=== PATIENT | female | born 1985 | race Two or more races ===

== ENCOUNTER 2024-05-15 06:55 | Day surgery (SDC) | payer MEDICAID, SELFPAY ==
[2024-05-13 07:41] VITALS: BMI 37.3
[2024-05-13 08:11] LABS: Basophils # (Auto) 0.1 Thou/mm3 (0.0-0.2); Basophils % (Auto) 1 % (0-2.5); Eosinophils # (Auto) 0.3 Thou/mm3 (0.0-0.5); Eosinophils % (Auto) 4 % (0-10); Hematocrit 30.6 % (36.0-46.0); Immature Granulocytes % (Auto) 0 % (0-0); Immature Granulocytes Auto 0.01 Thou/mm3 (0.00-0.00); Lymphocytes # (Auto) 3.2 Thou/mm3 (1.0-4.8); Lymphocytes % (Auto) 42 % (10-50); Mean Corpuscular HGB Conc 28.4 g/dl (31.0-37.0); Mean Corpuscular Hemoglobin 19.8 pg (25.0-35.0); Mean Corpuscular Volume 70 fL (80-100); Monocytes # (Auto) 0.5 Thou/mm3 (0.0-0.8); Monocytes % (Auto) 7 % (0-12); Neutrophils # (Auto) 3.5 Thou/mm3 (1.8-7.7); Neutrophils % (Auto) 46 % (37-80); Nucleated Red Blood Cell % 0 /100 WBC (0); Platelet Count 432 Thou/mm3 (140-440); RDW Standard Deviation 46.2 fL (36.4-46.3); Red Blood Count 4.39 Miln/mm3 (4.00-5.20); White Blood Count 7.7 Thou/mm3 (3.6-11.0)
[2024-05-13 08:13] LABS: Hemoglobin 8.7 g/dL (12.0-16.0)
[2024-05-13 08:24] LABS: HCG,Qualitative Serum Negative
[2024-05-13 08:29] LABS: Alanine Aminotransferase 17 U/L (10-49); Albumin, Serum 4.8 gm/dL (3.5-5.0); Albumin/Globulin Ratio 1.7 (1.2-2.2); Alkaline Phosphatase 49 U/L (46-116); Anion Gap 9 (7-16); Aspartate Amino Transferase 16 U/L (0-34); BUN/Creatinine Ratio 11 Ratio (12-20); Bilirubin,Total 0.3 mg/dL (0.3-1.2); Blood Urea Nitrogen 9 mg/dL (9-23); Calcium 9.5 mg/dL (8.3-10.6); Calcium (Corrected) 9.5 mg/dL (8.5-10.1); Carbon Dioxide 20.8 mMol/L (20.0-31.0); Chloride 108 mMol/L (98-107); Creatinine (Component) 0.8 mg/dL (0.6-1.3); Estimated Creatinine Clearance 102.9 mL/min (>60); Globulin 2.9 gm/dL (2.3-3.5); Glucose 89 mg/dL (74-106); Osmolality,Calculated 273 (275-295); Potassium 3.8 mMol/L (3.4-5.1); Sodium 138 mMol/L (136-145); Total Protein 7.7 gm/dL (5.7-8.2); eGFR > 60 See Note
[2024-05-15] VITALS (7 sets, daily range): BP systolic 95–114; BP diastolic 56–88; PULSE 67–104; RESP 18–20; TEMP 36.7–37.4; O2SAT 96–100; BMI 37.0
[2024-05-15] MEDS: RINGERS LACTATED 1000 ML 1,000 ML 20 ML IV (07:25)
--- NOTE | 2024-05-15 09:12 | PD.SUROPNT ---
Date of Procedure 05/15/24 Pre Op Diagnosis Symptomatic cholelithiasis Post Op Diagnosis Cholelithiasis with cholecystitis Procedure Laparoscopic cholecystectomy Findings Moderately distended gallbladder with large gallstone and chronic cholecystitis Procedure Description Patient was brought into the operating room in supine position. After administration of general endotracheal anesthesia abdomen was prepped and draped in standard surgical manner. A Veress needle was inserted through the umbilicus and pneumoperitoneum was obtained up to 15 mmHg. The Veress needle was then removed, a 5 mm infraumbilical incision was made and the 5mm trocar was inserted. Laparoscopic camera was placed. Under direct visualization a laparoscopic camera a 10 mm trocar was placed in subxiphoid and two 5 mm trocars placed in right upper quadrant. The gallbladder was identified and was noted to be moderately distended with a large gallstone and chronic cholecystitis. It was retracted cephalad and laterally. Dissection started near the infundibulum of gallbladder where cystic duct and gallbladder junction clearly identified. The cystic duct was circumferentially dissected off the peritoneum and surrounding inflammatory tissue. The critical view of safety was clearly demonstrated. Cystic duct was then divided between 2 endoclips proximally and one distally. The cystic artery was similarly dissected and divided. The gallbladder was then from the liver bed using electrocautery. The gallbladder was then placed inside an Endo Catch and removed from the abdomen utilizing subxiphoid trocar site. The area was copiously and thoroughly washed and irrigated, all the fluid was suctioned and the suction fluid returned clear. Hemostasis achieved using electrocautery. Endoclips noted be in place and intact without any bleeding or any leakage. Hemostasis was adequate and satisfactory. The subxiphoid trocar sites fascial defect was closed with 0 Vicryl using Endo Closure device. Instruments and trocars removed, pneumoperitoneum was evacuated and the incisions closed with 4-0 Monocryl in subcuticular fashion. Instrument needle and sponge counts were all reported to be correct X2. Patient tolerated the procedure well, was extubated, breathing spontaneously and without difficulty and was transferred to postanesthesia care in stable condition. Anesthesia GETA and local Pathology / specimen Other (Gallbladder and contents) Estimated Blood Loss 10 Condition Stable Disposition PACU Surgeon Mary Luis MD Surgical Staff Operation Date: 05/15/24 09:00 Case Staff Anesthesiologist: Miles Araiza RN First Assistant: Barbie Perez
[2024-05-15] MEDS: fentaNYL CIT INJ 50 mCg/ML AMP 2ML 25 MCG IV (09:33)
[2024-05-15] MEDS: ACETAMINOPHEN IVPB 1,000 MG/100 ML VIAL 250 MG IV (09:34)
== END 2024-05-15 10:10 | disposition home or self-care (01) ==
PROVIDERS: PCP Internal Medicine; Referring Provider Surgery; Visit Provider Surgery
PROC: 0FT44ZZ Resection of Gallbladder, Percutaneous Endoscopic Approach (ICD-10-PCS; CPT 47562; principal; 2024-05-15 08:45)
DX: K80.46 Calculus of bile duct with acute and chronic cholecystitis without obstruction (principal)
CPT/HCPCS: 47562; 36415; 80053; 84703; 85025; A4217; A4649; J0131; J0694; J1100; J1885; J2250; J2371; J2405; J2704; J3010; J3490; J7120

== ENCOUNTER 2024-07-07 14:59 | Emergency (ER) | payer MEDICAID, SELFPAY ==
[2024-07-07 15:58] VITALS: BP 130/82; PULSE 70; RESP 18; TEMP 36.7; O2SAT 100; BMI 37.3
--- NOTE | 2024-07-07 15:59 | XR_ITS ---
Examination: Pelvic ultrasound, transabdominal, complete Technique: Transabdominal ultrasound of the pelvis performed using grayscale imaging Date and time of exam: July 07, 2024 1802 hrs. Indications: Pelvic pain vaginal bleeding beginning 3 weeks ago Findings: Uterus 12.7 x 6.6 x 9.8 cm, multiple areas of fibroid degeneration, the largest in the fundus 4.7 cm Right ovary obscured by bowel gas Left ovary 3.8 cm arterial flow Impression: Multiple uterine masses, the largest in the fundus of uterus is vascular and may represent a malignant neoplasm of the uterus, measuring 4.7 x 4.2 x 4.3 cm Recommend MRI pelvis follow-up pre and postcontrast
--- NOTE | 2024-07-07 15:59 | PD.EDRME ---
Rapid Medical Screening Exam RME Arrival date/time: 07/07/24 14:59 39-year-old female with dysfunctional uterine bleeding presents emergency dept today requesting blood transfusion Chief Complaint: General Adult/Misc Complain Time Seen by Provider: 07/07/24 15:23 Vital signs: Vital Signs Temperature 98.0 F 07/07/24 15:58 Pulse Rate 70 07/07/24 15:58 Respiratory Rate 18 07/07/24 15:58 Blood Pressure 130/82 07/07/24 15:58 Pulse Oximetry (%) 100 07/07/24 15:58 Oxygen Delivery Method Room Air 07/07/24 15:58
[2024-07-07 16:26] LABS: Basophils # (Auto) 0.1 Thou/mm3 (0.0-0.2); Basophils % (Auto) 1 % (0-2.5); Eosinophils # (Auto) 0.3 Thou/mm3 (0.0-0.5); Eosinophils % (Auto) 5 % (0-10); Hematocrit 26.4 % (36.0-46.0); Immature Granulocytes % (Auto) 0 % (0-0); Immature Granulocytes Auto 0.01 Thou/mm3 (0.00-0.00); Lymphocytes # (Auto) 2.1 Thou/mm3 (1.0-4.8); Lymphocytes % (Auto) 32 % (10-50); Mean Corpuscular Hemoglobin 19.4 pg (25.0-35.0); Mean Corpuscular Volume 69 fL (80-100); Monocytes # (Auto) 0.4 Thou/mm3 (0.0-0.8); Monocytes % (Auto) 6 % (0-12); Neutrophils # (Auto) 3.8 Thou/mm3 (1.8-7.7); Neutrophils % (Auto) 57 % (37-80); Nucleated Red Blood Cell % 0 /100 WBC (0); Platelet Count 425 Thou/mm3 (140-440); RDW Standard Deviation 49.1 fL (36.4-46.3); Red Blood Count 3.81 Miln/mm3 (4.00-5.20); White Blood Count 6.7 Thou/mm3 (3.6-11.0)
[2024-07-07 16:41] LABS: Hemoglobin 7.4 g/dL (12.0-16.0)
[2024-07-07 16:44] LABS: Alanine Aminotransferase 38 U/L (10-49); Albumin, Serum 4.5 gm/dL (3.5-5.0); Albumin/Globulin Ratio 1.5 (1.2-2.2); Alkaline Phosphatase 57 U/L (46-116); Anion Gap 9 (7-16); Aspartate Amino Transferase 30 U/L (0-34); BUN/Creatinine Ratio 14 Ratio (12-20); Bilirubin,Total 0.2 mg/dL (0.3-1.2); Blood Urea Nitrogen 10 mg/dL (9-23); Calcium 9.4 mg/dL (8.3-10.6); Calcium (Corrected) 9.4 mg/dL (8.5-10.1); Carbon Dioxide 22.8 mMol/L (20.0-31.0); Chloride 109 mMol/L (98-107); Creatinine (Component) 0.7 mg/dL (0.6-1.3); Estimated Creatinine Clearance 117.6 mL/min (>60); Glucose 109 mg/dL (74-106); Osmolality,Calculated 281 (275-295); Potassium 4.1 mMol/L (3.4-5.1); Sodium 141 mMol/L (136-145); Total Protein 7.5 gm/dL (5.7-8.2); eGFR > 60 See Note
[2024-07-07 16:45] LABS: HCG,Qualitative Serum Negative
[2024-07-07 17:24] LABS: INR 0.9 (0.9-1.3); Partial Thromboplastin Time 22.8 Seconds (22.0-36.0); Prothrombin Time 10.2 Seconds (9.0-12.2)
[2024-07-07 17:51] LABS: Path Review Blood Smear Sent to Pathologist
[2024-07-07 18:51] LABS: Collection Type, Urine Clean Catch
[2024-07-07 19:32] LABS: Bacteria,Urine Rare; Bilirubin,Urine Negative (Negative); Blood,Urine 1+ (Negative); Clarity,Urine Clear (Clear/Hazy); Color,Urine Colorless (Lt Yel-Yel); Culture Indicated,Urine Not Indicated; Glucose, Urine Negative (Negative); Ketones,Urine Negative (Negative); Leukocyte Esterase,Urine Negative (Negative); Nitrite,Urine Negative (Negative); PH,Urine 6.5 (5.0-7.0); Protein,Urine Negative (Neg - Trace); RBC,Urine 2 /hpf (0-3); Specific Gravity,Urine 1.009 (1.001-1.035); Squamous Epithelial Cell,Urine 1 /hpf (0-5); Urobilinogen,Urine Negative mg/dL (0.0-1.0); WBC,Urine < 1 /hpf (0-5)
--- NOTE | 2024-07-07 19:36 | EDNOTE_ITS ---
<Statement entered by Daily Shelley MD - 07/08/24 01:45> As co-signing physician, I was present and available for consult prn. I concur with the plan and care as documented by the midlevel provider. ED General RME/HPI General Chief complaint: General Adult/Misc Complain Stated complaint: NEEDS BLOOD TRANSFUSION Time Seen by Provider: 07/07/24 15:23 Arrival date/time: 07/07/24 14:59 CC: Anemia HPI patient has had vaginal bleeding for the last 3 weeks is sent over by her THEOLOGY TEACHER for transfusion secondary to her chronic vaginal bleeding. Patient was reported to have a hemoglobin of 6.8 at the office. The patient denies any lightheadedness or general weakness. Patient has had transfusions in the past. Patient denies fever chills shortness of breath or difficulty breathing. RME / HPI RME / HPI narrative: 07/07/24 14:59 39-year-old female with dysfunctional uterine bleeding presents emergency dept today requesting blood transfusion Related Data Home Medications ?Medication ?Instructions ?Recorded ?Confirmed norethindrone acetate 1.5 1 tab PO DAILY 05/13/24 1206/06 mg-ethinyl estradiol 30 mcg tablet (Elaine) Previous Rx's ?Medication ?Instructions ?Recorded docusate sodium 100 mg capsule 100 mg PO BID #40 caps 05/15/24 (Colace) hydrocodone 5 mg-acetaminophen 325 1 tab PO Q6H PRN pa in (scale score 05/15/24 mg tablet 7-10) #15 tabs ibuprofen 600 mg tablet 600 mg PO Q8H PRN pain (scal e 05/15/24 score 4-6) #15 tabs Allergies Allergy/AdvReac Type Severity Reaction Status Date / Time No Known Allergies Allergy Verified 05/13/24 07:40 Review of Systems Review of Systems Narrative Review of Systems: [General: Obese not in cot no acute distress Head normocephalic HEENT: Within acceptable limits Neck is supple nontender Chest equal chest rise nontender to palpation Respiratory: Clear to auscultation no wheezes crackles or rubs CV: Rate rhythm is regular no murmurs rubs or clicks Abdomen is distended secondary to body habitus soft nontender no masses positive bowel sounds all 4 quadrants Back: No CVA tenderness no spinous process tenderness from cervical spine thoracic and lumbar spine Skin: Intact no petechiae rash induration ulceration or crepitus Extremities: Moving all extremity against resistance cap refill less than 2 seconds neurosensory intact Neuro: Awake alert oriented x3 Glascow coma 15 no focal deficits] Past Medical History Past Medical History NEUROLOGIC: Negative Neurological Disorders or Seizures CARDIAC: Negative Cardiac Disorders or Congestive Heart Failure RESPIRATORY: Negative Chronic Obstructive Pulmonary Disease (COPD) GASTROINTESTINAL: Positive Gastrointestinal Disorders, Gall Bladder Disease and Gastroesophageal Reflux Disease; Negative Hepatitis GENITOURINARY: Negative Genitourinary Disorders or Renal Disease REPRODUCTIVE: Positive Previous Pregnancies MUSCULOSKELETAL: Negative Musculoskeletal Disorders ENDOCRINE: Negative Endocrine Disorders, Diabetes Mellitus Type 1 or Diabetes Mellitus Type 2 HEMATOLOGIC: Positive Blood Disorders and Anemia OTHER HISTORY: Positive Blood Transfusions and Chicken Pox; Negative Autoimmune Disease, Shingles, Blood Transfusion Reaction, Anesthesia Reactions or Cancer Family History FAMILY HISTORY: Positive Family Surgery; Negative Family Psychiatric Problems, Family Respiratory Disorders, Family Cardiac Disorders, Family Gastrointestinal Problems, Family Cancer or Family Anesthesia Reaction Surgical History SURGICAL: Positive Tonsillectomy and Section (x2); Negative Abdominal Surgery Social History SMOKING STATUS: Never smoker ED Exam Narrative Physical exam: [General: Obese not in cot no acute distress Head normocephalic HEENT: Within acceptable limits Neck is supple nontender Chest equal chest rise nontender to palpation Respiratory: Clear to auscultation no wheezes crackles or rubs CV: Rate rhythm is regular no murmurs rubs or clicks Abdomen is distended secondary to body habitus soft nontender no masses positive bowel sounds all 4 quadrants Back: No CVA tenderness no spinous process tenderness from cervical spine thoracic and lumbar spine Skin: Intact no petechiae rash induration ulceration or crepitus Extremities: Moving all extremity against resistance cap refill less than 2 seconds neurosensory intact Neuro: Awake alert oriented x3 Glascow coma 15 no focal deficits] Course Quality Measures none Orders Category Date Time Status US pelvic complete Stat Exams 07/07/24 15:59 Completed CBC Stat Lab 07/07/24 16:10 Completed Comprehensive Metabolic Panel Stat Lab 07/07/24 16:10 Completed HCG,Qualitative Serum Stat Lab 07/07/24 16:10 Completed Partial Thromboplastin Time Stat Lab 07/07/24 16:10 Completed Path Review Blood Smear Stat Lab 07/07/24 16:10 Completed Prothrombin Time with INR Stat Lab 07/07/24 16:10 Completed Type and Screen Stat Lab 07/07/24 16:10 Completed UA, C/S IF [Urinalysis, C/S if Indicated] Stat Lab 07/07/24 18:37 Completed prbc [Red Blood Cells] Stat Lab 07/07/24 16:10 Completed Vital Signs Vital signs: Vital Signs Temperature 98.0 F 07/07/24 15:58 Pulse Rate 70 07/07/24 15:58 Respiratory Rate 18 07/07/24 15:58 Blood Pressure 130/82 07/07/24 15:58 Pulse Oximetry (%) 100 07/07/24 15:58 Oxygen Delivery Method Room Air 07/07/24 15:58 [facility] Patient data External records reviewed:: [facility] previous records Clinical information provided by:: patient Social determinants that could affect healthcare access:: none Patient has the following chronic illnesses:: Dysfunctional uterine bleeding anemia How is presenting disease/condition affected by chronic disease/condition?: e xacerbated by Evaluation data The following diagnostics were reviewed and interpreted by me:: lab results and radiology exam(s) Lab and/or radiology exams considered but not ordered:: CBC shows no leukocytosis hemoglobin of 7.4 hematocrit of 26.4 platelet count of 425 Coags within acceptable limits No significant electrolyte imbalances renal impairment transaminitis or T. bili elevation. Urine is negative for any acute findings such as urinary tract infection Type and cross shows a positive antibody screen negative. Ultrasound shows multiple uterine fibroids Interpretation Summary: The patient continues to have vaginal bleeding at this time we will transfuse the patient with 1 unit discharge back. Patient states she has a follow-up with her THEOLOGY TEACHER in 2 days. Patient is in agreement with the plan Medications Medications considered but not ordered:: None Medication administrations:: None Consultations Consultation(s) initiated? (list below): No Diagnosis Differential Diagnosis ED Complaint MDM: Anemia dysfunctional uterine bleeding uterine fibroids Most likely diagnosis given after review of the tests above:: Hemorrhagic anemia dysfunctional uterine bleeding Admission Indicated Admission indicated?: not indicated Explain why admission is indicated or not indicated:: Stable for close outpatient follow-up Admission Request Was there a request for admission?: No Disposition Plan Disposition Plan: Discharge Discharge Attestation Discharge Attestation: The patient and all family members were given an opportunity to ask questions and understood the discharge instructions. Discharge instructions specifically effects, indications for sooner follow up or return to the emergency department, and the expected course of current diagnosis. Patient condition: Stable Medical Decision Making Differential Diagnosis Differential Diagnosis: Anemia dysfunctional uterine bleeding uterine fibroids Lab Data 07/07/24 16:10 07/07/24 16:10 Labs: Lab Results 07/07/24 07/07/24 Range/Units 16:10 18:37 WBC 6.7 (3.6-11.0) Thou/mm3 RBC 3.81 L (4.00-5.20) Miln/mm3 Hgb 7.4 L (12.0-16.0) g/dL Hct 26.4 L (36.0-46.0) % MCV 69 L (80-100) fL MCH 19.4 L (25.0-35.0) pg MCHC 28.0 L (31.0-37.0) g/dl RDW Std Deviation 49.1 H (36.4-46.3) fL Plt Count 425 (140-440) Thou/mm3 Neut % (Auto) 57 (37-80) % Lymph % (Auto) 32 (10-50) % [place] % (Auto) 6 (0-12) % Eos % (Auto) 5 (0-10) % Baso % (Auto) 1 (0-2.5) % Neut # (Auto) 3.8 (1.8-7.7) Thou/mm3 Lymph # (Auto) 2.1 (1.0-4.8) Thou/mm3 [place] # (Auto) 0.4 (0.0-0.8) Thou/mm3 Eos # (Auto) 0.3 (0.0-0.5) Thou/mm3 Baso # (Auto) 0.1 (0.0-0.2) Thou/mm3 Immature Gran # (Auto) 0.01 H (0.00-0.00) Thou/mm3 Absolute Nucleated RBC 0.00 (0.00-0.00) Thou/mm3 Immature Gran % 0 (0-0) % Nucleated RBC % 0 (0) /100 WBC Smear Path Review Sent to Pathologist PT 10.2 (9.0-12.2) Seconds INR 0.9 (0.9-1.3) APTT 22.8 (22.0-36.0) Seconds Sodium 141 (136-145) mMol/L Potassium 4.1 (3.4-5.1) mMol/L Chloride 109 H (98-107) mMol/L Carbon Dioxide 22.8 (20.0-31.0) mMol/L Anion Gap 9 (7-16) BUN 10 (9-23) mg/dL Creatinine 0.7 (0.6-1.3) mg/dL Estim Creat Clear Calc 117.6 (>60) mL/min eGFR > 60 (60 - ) See Note BUN/Creatinine Ratio 14 (12-20) Ratio Glucose 109 H (74-106) mg/dL Calculated Osmolality 281 (275-295) Calcium 9.4 (8.3-10.6) mg/dL Corrected Calcium 9.4 (8.5-10.1) mg/dL Total Bilirubin 0.2 L (0.3-1.2) mg/dL AST 30 (0-34) U/L ALT 38 (10-49) U/L Alkaline Phosphatase 57 (46-116) U/L Total Protein 7.5 (5.7-8.2) gm/dL Albumin 4.5 (3.5-5.0) gm/dL Globulin 3.0 (2.3-3.5) gm/dL Albumin/Globulin Ratio 1.5 (1.2-2.2) HCG, Qual Negative Ur Collection Type Clean Catch Urine Color Colorless A (Lt Yel-Yel) Urine Clarity Clear (Clear/Hazy) Urine pH 6.5 (5.0-7.0) Ur Specific [place] 1.009 (1.001-1.035) Urine Protein Negative (Neg - Trace) Urine Glucose (UA) Negative (Negative) Urine Ketones Negative (Negative) Urine Blood 1+ A (Negative) Urine Nitrite Negative (Negative) Urine Bilirubin Negative (Negative) Urine Urobilinogen (Auto) Negative (0.0-1.0) mg/dL Ur Leukocyte Esterase Negative (Negative) Urine RBC 2 (0-3) /hpf Urine WBC < 1 (0-5) /hpf Ur Squamous Epith Cells 1 (0-5) /hpf Urine Bacteria Rare (None) Ur Culture Indicated? Not Indicated Blood Type A Positive Antibody Screen NEGATIVE Crossmatch See Detail Blood Bank Wristband ID Yes Discharge Plan Plan Patient Disposition: HOME (Self Care) Patient condition on transfer: Stable Prescriptions/Referrals Prescriptions/Med Rec: No Action norethindrone ac-eth estradiol [Elaine] 1.5-30 mg-mcg tablet 1 tab PO DAILY Patient Comments: TAKE 1 TABLET BY ORAL ROUTE EVERY DAY AND START A NEW PACK EVERY 3 WEEKS docusate sodium [Colace] 100 mg capsule 100 mg PO BID Qty: 40 0RF ibuprofen 600 mg tablet 600 mg PO Q8H PRN (Reason: pain (scale score 4-6)) Qty: 15 0RF hydrocodone-acetaminophen 5-325 mg tablet 1 tab PO Q6H MDD 4 PRN (Reason: pain (scale score 7-10)) Qty: 15 0RF Problem List Clinical Impression: Dysfunctional uterine bleeding, Anemia Patient/Caregiver Discharge Instructions Education Materials: Anemia, ED Dysfunctional Uterine Bleeding Additional Instructions: Follow-up with your OB as stated on Sunday if there is a worsening of symptoms return immediately to the emergency room for reevaluation. Print Language: Sammarinese Stand Alone Forms: Ana Maria Award Info., Patient Portal Info Letter, Work/School Release [place]OU[place] Supervising Physician INDIO/[place] Supervising Physician: David Salazar ENP
[2024-07-07 21:46] VITALS: BP 118/78; PULSE 78; RESP 18; TEMP 36.6
[2024-07-07 22:18] VITALS: BP 89/62; PULSE 79; RESP 18; TEMP 37.2; O2SAT 100
[2024-07-07 22:37] VITALS: BP 109/75; PULSE 86; RESP 15; TEMP 36.7; O2SAT 100
[2024-07-07 22:52] VITALS: BP 112/70; PULSE 82; RESP 18; TEMP 36.7; O2SAT 100
[2024-07-08 01:10] VITALS: BP 111/63; PULSE 82; RESP 181; TEMP 36.6; O2SAT 99
== END 2024-07-08 01:15 | disposition home or self-care (01) ==
PROVIDERS: Nurse Practitioner Primary Care; Emergency Provider Emergency Medicine
DX: N93.8 Other specified abnormal uterine and vaginal bleeding (principal); D64.9 Anemia, unspecified
CPT/HCPCS: 36415; 36430; 76856; 80053; 81001; 84703; 85025; 85610; 85730; 86850; 86900; 86901; 86923; 99285; P9016

== ENCOUNTER 2024-09-22 17:29 | Emergency (ER) | payer MEDICAID, SELFPAY ==
[2024-09-22 17:30] VITALS: BMI 38.2
[2024-09-22 18:04] VITALS: BP 147/85; PULSE 100; RESP 19; TEMP 37.1; O2SAT 100
--- NOTE | 2024-09-22 18:08 | PD.EDRME ---
Rapid Medical Screening Exam RME Arrival date/time: 09/22/24 17:29 39-year-old female with history of dysfunctional uterine bleeding presents to the emergency department for complaints of dysfunction uterine bleeding requesting blood transfusion. Patient reports that she is scheduled to have hysterectomy Chief Complaint: General Adult/Misc Complain Time Seen by Provider: 09/22/24 18:05 Vital signs: Vital Signs Temperature 98.8 F 09/22/24 18:04 Pulse Rate 100 09/22/24 18:04 Respiratory Rate 19 09/22/24 18:04 Blood Pressure 147/85 H 09/22/24 18:04 Pulse Oximetry (%) 100 09/22/24 18:04 Oxygen Delivery Method Room Air 09/22/24 18:04
[2024-09-22 18:37] LABS: Basophils # (Auto) 0.1 Thou/mm3 (0.0-0.2); Basophils % (Auto) 1 % (0-2.5); Eosinophils # (Auto) 0.3 Thou/mm3 (0.0-0.5); Eosinophils % (Auto) 5 % (0-10); Hematocrit 28.2 % (36.0-46.0); Immature Granulocytes % (Auto) 0 % (0-0); Immature Granulocytes Auto 0.01 Thou/mm3 (0.00-0.00); Lymphocytes # (Auto) 1.7 Thou/mm3 (1.0-4.8); Lymphocytes % (Auto) 27 % (10-50); Mean Corpuscular HGB Conc 28.7 g/dl (31.0-37.0); Mean Corpuscular Hemoglobin 20.4 pg (25.0-35.0); Mean Corpuscular Volume 71 fL (80-100); Monocytes # (Auto) 0.5 Thou/mm3 (0.0-0.8); Monocytes % (Auto) 8 % (0-12); Neutrophils # (Auto) 3.7 Thou/mm3 (1.8-7.7); Neutrophils % (Auto) 59 % (37-80); Nucleated Red Blood Cell % 0 /100 WBC (0); Platelet Count 408 Thou/mm3 (140-440); RDW Standard Deviation 52.7 fL (36.4-46.3); Red Blood Count 3.98 Miln/mm3 (4.00-5.20); White Blood Count 6.3 Thou/mm3 (3.6-11.0)
[2024-09-22 18:47] LABS: HCG,Qualitative Serum Negative
[2024-09-22 18:52] LABS: Hemoglobin 8.1 g/dL (12.0-16.0)
[2024-09-22 18:58] LABS: Alanine Aminotransferase 19 U/L (10-49); Albumin, Serum 4.6 gm/dL (3.5-5.0); Albumin/Globulin Ratio 1.5 (1.2-2.2); Alkaline Phosphatase 52 U/L (46-116); Anion Gap 11 (7-16); Aspartate Amino Transferase 20 U/L (0-34); BUN/Creatinine Ratio 15 Ratio (12-20); Bilirubin,Total 0.3 mg/dL (0.3-1.2); Blood Urea Nitrogen 12 mg/dL (9-23); Calcium 8.8 mg/dL (8.3-10.6); Calcium (Corrected) 8.8 mg/dL (8.5-10.1); Chloride 109 mMol/L (98-107); Creatinine (Component) 0.8 mg/dL (0.6-1.3); Estimated Creatinine Clearance 104.2 mL/min (>60); Glucose 130 mg/dL (74-106); Osmolality,Calculated 282 (275-295); Potassium 3.8 mMol/L (3.4-5.1); Sodium 141 mMol/L (136-145); Total Protein 7.6 gm/dL (5.7-8.2); eGFR > 60 See Note
[2024-09-22 19:32] LABS: INR 0.9 (0.9-1.3); Partial Thromboplastin Time 22.2 Seconds (22.0-36.0); Prothrombin Time 10.2 Seconds (9.0-12.2)
--- NOTE | 2024-09-22 19:38 | PC.NURSE ---
PT CALLED BACK FROM [facility] NO ANSWER
--- NOTE | 2024-09-22 20:00 | PC.NURSE ---
1938 na x 1 @ 1938.
[2024-09-22] MEDS: [UNRECOGNIZED DRUG - REMARK] 134 MG IV (20:30)
--- NOTE | 2024-09-22 20:32 | PD.EDVAGBL ---
ED OB Contraction Preg RMI/HPI General Chief complaint: General Adult/Misc Complain Stated complaint: HGB 6.8; SENT BY PCP FOR BLOOD TRANSFUSION Time Seen by Provider: 09/22/24 18:05 Arrival date/time: 09/22/24 17:29 RME / HPI RME / HPI Narrative: 09/22/24 17:29 The patient is a 39-year-old female with history of dysfunctional uterine bleeding 2/2 multiple uterine fibroids presents to the emergency department for complaints of dysfunction uterine bleeding requesting blood transfusion. She reported that her finger stick hemoglobin level was 6.8 done at her PCP office this morning, and was sent to ED for blood transfusion. Her last menstrual cycle started on 09/17/2024, and was changing up to 1 tampon every hourly 2 days ago, but has decreased in frequency after that. She reported that she has scheduled her hysterectomy next month on October 2024. She denied any headache, lightheadedness, sore throat, chest pain, SOB, abdominal pain, any changes in bowel or bladder habit or leg swelling. She denies any fever or chills, nausea or vomiting. Related Data Home Medications ?Medication ?Instructions ?Recorded ?Confirmed norethindrone acetate 1.5 1 tab PO DAILY 05/13/24 05/13/24 mg-ethinyl estradiol 30 mcg tablet (Elaine) Previous Rx's ?Medication ?Instructions ?Recorded docusate sodium 100 mg capsule 100 mg PO BID #40 caps 05/15/24 (Colace) hydrocodone 5 mg-acetaminophen 325 1 tab PO Q6H PRN pain (scale score 05/15/24 mg tablet 7-10) #15 tabs ibuprofen 600 mg tablet 600 mg PO Q8H PRN pain (scale 05/15/24 score 4-6) #15 tabs Allergies Allergy/AdvReac Type Severity Reaction Status Date / Time No Known Allergies Allergy Verified 09/22/24 17:32 Review of Systems Review of Systems Systems Reviewed: All systems reviewed, normal except as documented Past Medical History Past Medical History NEUROLOGIC: Negative Neurological Disorders or Seizures CARDIAC: Negative Cardiac Disorders or Congestive Heart Failure RESPIRATORY: Negative Chronic Obstructive Pulmonary Disease (COPD) GASTROINTESTINAL: Positive Gastrointestinal Disorders, Gall Bladder Disease and Gastroesophageal Reflux Disease; Negative Hepatitis GENITOURINARY: Negative Genitourinary Disorders or Renal Disease REPRODUCTIVE: Positive Previous Pregnancies MUSCULOSKELETAL: Negative Musculoskeletal Disorders ENDOCRINE: Negative Endocrine Disorders, Diabetes Mellitus Type 1 or Diabetes Mellitus Type 2 HEMATOLOGIC: Positive Blood Disorders and Anemia OTHER HISTORY: Positive Blood Transfusions and Chicken Pox; Negative Autoimmune Disease, Shingles, Blood Transfusion Reaction, Anesthesia Reactions or Cancer Family History FAMILY HISTORY: Positive Family Surgery; Negative Family Psychiatric Problems, Family Respiratory Disorders, Family Cardiac Disorders, Family Gastrointestinal Problems, Family Cancer or Family Anesthesia Reaction Surgical History SURGICAL: Positive Tonsillectomy and Section (x2); Negative Abdominal Surgery Social History SMOKING STATUS: Never smoker ED Exam Narrative Physical exam: General: No acute distress, Alert and Oriented x 3 HEENT: Moist mucous membranes, oropharynx clear Neck: Supple, No masses, No JVD CVS: S1S2 Regular rate and rhythm, No murmurs, rubs or gallops Lungs: Clear to auscultation with no accessory use, no wheeze no rhonchi Abd: Soft, mild tenderness over lower quadrant/ND, +BS, no organomegaly Ext: No edema, warm and well perfused Skin: No rash Psych: Appropriate mood and affect Course Quality Measures none Orders Category Date Time Status Insert IV NOW Care 09/22/24 18:08 Active CBC Stat Lab 09/22/24 18:15 Completed Comprehensive Metabolic Panel Stat Lab 09/22/24 18:15 Completed HCG,Qualitative Serum Stat Lab 09/22/24 18:15 Completed Partial Thromboplastin Time Stat Lab 09/22/24 18:15 Completed Prothrombin Time with INR Stat Lab 09/22/24 18:15 Completed Type and Screen Stat Lab 09/22/24 18:15 Results prbc [Red Blood Cells] Stat Lab 09/22/24 18:15 Results ferumoxytoL (NON-ESRD) [Feraheme Inj (NON-ESRD)] 510 mg Med 09/22/24 19:11 Discontinued Sodium Chloride 0.9% [Ns] 50 ml IV X1 Vital Signs Vital signs: Vital Signs Temperature 98.8 F 09/22/24 18:04 Pulse Rate 100 09/22/24 18:04 Respiratory Rate 19 09/22/24 18:04 Blood Pressure 147/85 H 09/22/24 18:04 Pulse Oximetry (%) 100 09/22/24 18:04 Oxygen Delivery Method Room Air 09/22/24 18:04 Vaginal Bleeding MDM Narrative MDM Narrative: The patient is a 39-year-old female with history of dysfunctional uterine bleeding 2/2 multiple uterine fibroids presents to the emergency department for complaints of dysfunction uterine bleeding requesting blood transfusion. She reported that her finger stick hemoglobin level was 6.8 done at her PCP office this morning, and was sent to ED for blood transfusion. Her last menstrual cycle started on 09/17/2024, and was changing up to 1 tampon every hourly 2 days ago, but has decreased in frequency after that. She reported that she has scheduled her hysterectomy next month on October 2024. She denied any headache, lightheadedness, sore throat, chest pain, SOB, abdominal pain, any changes in bowel or bladder habit or leg swelling. She denies any fever or chills, nausea or vomiting. In the ED her vitals were significant for BP 147/85, pulse 100, RR 19, temp 98.8, saturating 100% on room air. Her labs were significant for hemoglobin of 8.1, MCV 71, RDW 52.7, coag panel WNL, chemistry panel revealed chloride 109, blood sugar 130 with other chemistry panel WNL. The patient was infused 510 Mg of Feraheme x 1. Patient data External records reviewed:: [facility] previous records Clinical information provided by:: patient Social determinants that could affect healthcare access:: none Patient has the following chronic illnesses:: See above How is presenting disease/condition affected by chronic disease/condition?: caused by Evaluation data The following diagnostics were reviewed and interpreted by me:: lab results Lab and/or radiology exams considered but not ordered:: None Interpretation Summary: See above Medications / Prescriptions Medications or Prescriptions considered but not ordered:: PRBC transfusion Medication administrations:: Medication Administration History Discontinued Medications Ferumoxytol 510 mg/ Sodium (Chloride) 67 mls @ 134 mls/hr IV X1 ONE Stop: 09/22/24 19:12 Last Infusion: 09/22/24 21:03 Dose: Infused Documented By: Admin: 09/22/24 20:30 Dose: 134 mls/hr Documented By: EF See above Consultations Consultation(s) initiated? (list below): No Consultation #1 (Physician, Specialty, Details): None Diagnosis Vaginal Bleeding Differential Diagnosis: dysfunctional uterine bleeding and vaginal bleeding Most likely diagnosis given after review of the tests above:: Dysfunctional uterine bleeding Admission Indicated Admission indicated?: not indicated Admission Request Was there a request for admission?: No Disposition Plan Disposition Plan: Discharge Discharge Attestation Discharge Attestation: The patient and all family members were given an opportunity to ask questions and understood the discharge instructions. Discharge instructions specifically effects, indications for sooner follow up or return to the emergency department, and the expected course of current diagnosis. Patient condition: Stable Discharge Plan Plan Patient Disposition: HOME (Self Care) Patient condition on transfer: Stable Prescriptions/Referrals Prescriptions/Med Rec: No Action norethindrone ac-eth estradiol [Elaine] 1.5-30 mg-mcg tablet 1 tab PO DAILY Patient Comments: TAKE 1 TABLET BY ORAL ROUTE EVERY DAY AND START A NEW PACK EVERY 3 WEEKS docusate sodium [Colace] 100 mg capsule 100 mg PO BID Qty: 40 0RF ibuprofen 600 mg tablet 600 mg PO Q8H PRN (Reason: pain (scale score 4-6)) Qty: 15 0RF hydrocodone-acetaminophen 5-325 mg tablet 1 tab PO Q6H MDD 4 PRN (Reason: pain (scale score 7-10)) Qty: 15 0RF Referrals: No Primary/Family,Physician [Primary Care Provider] - In 1 week Problem List Clinical Impression: DUB (dysfunctional uterine bleeding) Patient/Caregiver Discharge Instructions Discharge Activity: activity as tolerated Education Materials: Understanding Uterine Bleeding, ED Dysfunctional Uterine Bleeding Additional Instructions: You wear treated for dysfunctional uterine bleeding, without blood transfusion as your hemoglobin was stable. You have been discharged by Dr. Altamirano on following recommendations: Please follow-up with your PCP within 1 week of discharge Please follow-up with your copy worker within 1 to 2-week of discharge -Continue taking ferrous sulfate 325 mg every other day as prescribed with orange juice -Continue taking all other medicines as prescribed -Recommended to return back to emergency department if your symptoms persists or worsens Print Language: Slovak Stand Alone Forms: Ana Maria Award Info., Patient Portal Info Letter
== END 2024-09-22 21:36 | disposition home or self-care (01) ==
PROVIDERS: Nurse Practitioner Primary Care; Emergency Provider Student in an Organized Health Care Education/Training Program
DX: N93.8 Other specified abnormal uterine and vaginal bleeding (principal); D25.9 Leiomyoma of uterus, unspecified
CPT/HCPCS: 36415; 80053; 84703; 85025; 85610; 85730; 86850; 86900; 86901; 96365; 99284; Q0138

== ENCOUNTER 2024-10-23 10:38 | Inpatient (IN) | payer MEDICAID, SELFPAY ==
[2024-10-21 10:40] VITALS: BMI 38.3
[2024-10-21 11:26] LABS: Basophils # (Auto) 0.1 Thou/mm3 (0.0-0.2); Basophils % (Auto) 1 % (0-2.5); Eosinophils # (Auto) 0.2 Thou/mm3 (0.0-0.5); Eosinophils % (Auto) 3 % (0-10); Hematocrit 35.7 % (36.0-46.0); Hemoglobin 10.7 g/dL (12.0-16.0); Immature Granulocytes % (Auto) 0 % (0-0); Immature Granulocytes Auto 0.02 Thou/mm3 (0.00-0.00); Lymphocytes # (Auto) 2.5 Thou/mm3 (1.0-4.8); Lymphocytes % (Auto) 32 % (10-50); Mean Corpuscular Hemoglobin 23.6 pg (25.0-35.0); Mean Corpuscular Volume 79 fL (80-100); Monocytes # (Auto) 0.4 Thou/mm3 (0.0-0.8); Monocytes % (Auto) 5 % (0-12); Neutrophils # (Auto) 4.6 Thou/mm3 (1.8-7.7); Neutrophils % (Auto) 59 % (37-80); Nucleated Red Blood Cell % 0 /100 WBC (0); Platelet Count 342 Thou/mm3 (140-440); RDW Standard Deviation 73.8 fL (36.4-46.3); Red Blood Count 4.53 Miln/mm3 (4.00-5.20); White Blood Count 7.7 Thou/mm3 (3.6-11.0)
[2024-10-21 11:43] LABS: Anion Gap 12 (7-16); BUN/Creatinine Ratio 14 Ratio (12-20); Blood Urea Nitrogen 11 mg/dL (9-23); Calcium 9.5 mg/dL (8.3-10.6); Carbon Dioxide 20.8 mMol/L (20.0-31.0); Chloride 104 mMol/L (98-107); Creatinine (Component) 0.8 mg/dL (0.6-1.3); Estimated Creatinine Clearance 104.4 mL/min (>60); Glucose 89 mg/dL (74-106); Osmolality,Calculated 272 (275-295); Potassium 3.6 mMol/L (3.4-5.1); Sodium 137 mMol/L (136-145); eGFR > 60 See Note
[2024-10-21 13:41] LABS: Collection Type, Urine Clean Catch
[2024-10-21 14:56] LABS: HCG Qualitative,Urine Negative
[2024-10-21 15:12] LABS: Bacteria,Urine Rare; Bilirubin,Urine Negative (Negative); Blood,Urine Negative (Negative); Clarity,Urine Clear (Clear/Hazy); Color,Urine Lt-Yellow (Lt Yel-Yel); Glucose, Urine Negative (Negative); Ketones,Urine Negative (Negative); Leukocyte Esterase,Urine Negative (Negative); Nitrite,Urine Negative (Negative); Protein,Urine Negative (Neg - Trace); RBC,Urine 2 /hpf (0-3); Specific Gravity,Urine 1.015 (1.001-1.035); Squamous Epithelial Cell,Urine 2 /hpf (0-5); Urobilinogen,Urine Negative mg/dL (0.0-1.0); WBC,Urine 1 /hpf (0-5)
--- NOTE | 2024-10-22 15:31 | SUR.PREOP ---
Pt notified to come in at 1030 tomorrow.
[2024-10-23] VITALS (18 sets, daily range): BP systolic 108–129; BP diastolic 58–77; PULSE 71–86; RESP 16–98; TEMP 36.3–37.2; O2SAT 95–100; BMI 38.0
[2024-10-23] MEDS: RINGERS LACTATED 1000 ML 1,000 ML 20 ML IV (11:24)
--- NOTE | 2024-10-23 14:20 | PC.NURSE ---
Patient in room alert and oriented x3, daughter at bedside, vitals staple.
--- NOTE | 2024-10-23 14:31 | SUR.OPER ---
1430: Per Dr. Altamirano, called patient's daughter Eden to get consent to remove bilateral fallopian tubes. Eden consented to the bilateral salpingectomy. Witnessed by Pema Campoverde RN.
--- NOTE | 2024-10-23 14:50 | XR_ITS ---
Examination: Abdomen AP single view Technique: AP portable supine abdomen, single view Exam date and time: October 23, 2024 1543 hours INDICATIONS: Missing operative instrument today FINDINGS: No opaque foreign body depicted Nonobstructive bowel gas pattern Rectal tube IMPRESSION: No opaque foreign body
--- NOTE | 2024-10-23 15:26 | PD.GYNPROC ---
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 She received general anesthesia. Prepped and draped in the usual sterile fashion. Jones catheter placed in situ and balloon inflated left in place. Surgical site infection prophylaxis given. Surgical team was ready and scrubbed. Patient in dorsal supine position. A Pfannenstiel incision after timeout was done over the previous scar. Carried down from skin subcutaneous tissue to rectus sheath which was incised transversely from the underlying muscles by sharp blunt dissection peritoneal cavity entered atraumatically.. O'Markell-O'Florence retractor placed bowels packed away anterior blade applied uterine fundus felt with double-tooth tenaculum. Uterus is enlarged with multiple fibroids. Tubes and ovaries look normal. However tubes are stuck to the ovaries. Intraoperatively patient's daughter Reginald did give consent to remove the tubes as much as possible for prophylaxis for current standard of care for prevention or decreasing the chances of ovarian cancer in future. Intraoperatively patient also received IV methylene blue, and no spillage of the blue urine was seen in the surgical field and the Jones bag did collect blue dye stained urine. Using the Enseal device the tubo-ovarian ligament and the cornual tubal ligaments on either side were clamped , sealed and partial removal of F tubes especially in the fimbrial end was removed on both sides with the help of Enseal. Hemostasis secured Then the round ligament was clamped sealed and cut on either side Hemostasis present The uterovesical fold of peritoneum was incised and from the underlying lower uterine segment to push the bladder down there is adherent thick tissue on the patient's right side in this area and sharp dissection was done to retract the bladder down in this area The uterine arteries were clamped cut ligated with a Broderick clamps at the isthmus level These were doubly secured using 0 Vicryl suture including transfixation suture Then medial clamp using the Bayron clamp was placed medial to the uterine arteries the big uterine body along with fibroids was removed after securing the medial pedicle medial to the uterine vessels with 0 Vicryl suture Successively then the bladder was retracted down and medial clamps were placed using Bayron clamps on either side medial to the previous pedicle each tied with 0 Vicryl suture till the cervical vaginal angles were reached Then the cervix was removed using Srinivas scissors. Entire cervix was removed With a vaginal cervical vaginal angles along with the vaginal vault was secured with running 0 Vicryl suture Cervical vaginal angles were tied with McEnrodt's ligament on either side Irrigation was done Return is clear Auricles hemostatic Jones is draining bluish urine On either side the ureters are felt and are nondilated. Then with the count correct closure is done. However after closure of the peritoneum there was mention of missing 2 Babcocks the short Babcocks which were not used in this surgery at all most likely the miscount is due to incorrect labeling on the pack on the surgical pack and so abdominal x-ray was taken in the OR and it showed no instrument in the patient's abdomen. At that point the entire surgical incision was closed with rectus abdominis muscles approximated with 2-0 Vicryl peritoneum closure was already done with 2-0 Vicryl rectus sheath was approximated with 1 Monocryl suture subcutaneous tissue with 3-0 plain and then subcuticular sutures using 4-0 Monocryl were applied to approximate the surgical incision. Perineal dressing was placed with Dermabond And then the compression dressing. Patient sent to recovery in a stable condition. Specimen: uterus, left tube (fimbrial end only ) and right tube (fimbrial end only ) Estimated blood loss (ml): 125 Findings: enlarged 14 cm uterus with multiple serosal, intramural and submucosal fibroids Complications: none Surgical staff Operation Date: 10/23/24 12:30 Case Staff Anesthesiologist: Sekou Paz training development specialist: Louie Duran Diagnosis Discharge Diagnosis (1) Menorrhagia with regular cycle: Status: Acute (2) Fibroid uterus: Status: Acute Problem List Completed Was Problem List Reviewed/Reconciled?: Yes
[2024-10-23] MEDS: fentaNYL CIT INJ 50 mCg/ML AMP 2ML 25 MCG IVP ×2 (15:35→15:43)
[2024-10-23] MEDS: ONDANSETRON INJ 2 MG/ML INJ 2 ML 4 MG IVP (15:55)
[2024-10-23] MEDS: RINGERS LACTATED 1000 ML 1,000 ML 125 ML IV ×2 (15:58→23:42)
[2024-10-23] MEDS: Morphine Sulfate PF 1 MG/ML PCA VIAL 30 ML 30 MG IV (16:18)
--- NOTE | 2024-10-23 16:39 | PC.NURSE ---
report received from Dimple RN, PACU
--- NOTE | 2024-10-23 16:40 | SUR.PHASEI ---
1522: pt arrived to PACU via bed drowsy but arouses to voice, breathing unlabored, dressing to abdomen clean, dry, and intact, 16F bonds in place and patent, report from Pema BRYANT and Dr Paz 1600: pt tolerating ice chips without difficulty swallowing or n/v 1640: pt lying in bed with eyes closed, breathing unlabored, VS stable, dressing to abdomen clean, dry, and intact, report called to Aneta BRYANT, pt transferred to room at this time, daughter Eden updated on pt status and room number
[2024-10-23] MEDS: ceFAZolin/D5W 2 GM IV 2 GM/100 ML BAG IV (20:03)
[2024-10-24] VITALS (8 sets, daily range): BP systolic 106–114; BP diastolic 53–64; PULSE 77–95; RESP 15–98; TEMP 36.1–36.3; O2SAT 97–99
[2024-10-24] MEDS: ceFAZolin/D5W 2 GM IV 2 GM/100 ML BAG IV (04:28)
[2024-10-24 05:48] LABS: Basophils % (Auto) 0 % (0-2.5); Eosinophils % (Auto) 0 % (0-10); Hematocrit 31.2 % (36.0-46.0); Hemoglobin 9.8 g/dL (12.0-16.0); Immature Granulocytes % (Auto) 0 % (0-0); Immature Granulocytes Auto 0.05 Thou/mm3 (0.00-0.00); Lymphocytes # (Auto) 1.3 Thou/mm3 (1.0-4.8); Lymphocytes % (Auto) 10 % (10-50); Mean Corpuscular HGB Conc 31.4 g/dl (31.0-37.0); Mean Corpuscular Hemoglobin 24.1 pg (25.0-35.0); Mean Corpuscular Volume 77 fL (80-100); Monocytes # (Auto) 0.7 Thou/mm3 (0.0-0.8); Monocytes % (Auto) 6 % (0-12); Neutrophils # (Auto) 10.6 Thou/mm3 (1.8-7.7); Neutrophils % (Auto) 84 % (37-80); Nucleated Red Blood Cell % 0 /100 WBC (0); Platelet Count 319 Thou/mm3 (140-440); RDW Standard Deviation 71.2 fL (36.4-46.3); Red Blood Count 4.07 Miln/mm3 (4.00-5.20); White Blood Count 12.6 Thou/mm3 (3.6-11.0)
[2024-10-24] MEDS: KETOROLAC INJ 30 MG/ML VIAL IVP (06:04)
[2024-10-24 06:35] LABS: Albumin, Serum 3.8 gm/dL (3.5-5.0); Anion Gap 13 (7-16); BUN/Creatinine Ratio 7 Ratio (12-20); Blood Urea Nitrogen < 5 mg/dL (9-23); Calcium 8.7 mg/dL (8.3-10.6); Calcium (Corrected) 8.9 mg/dL (8.5-10.1); Carbon Dioxide 18.5 mMol/L (20.0-31.0); Chloride 108 mMol/L (98-107); Creatinine (Component) 0.7 mg/dL (0.6-1.3); Estimated Creatinine Clearance 118.6 mL/min (>60); Glucose 145 mg/dL (74-106); Osmolality,Calculated 277 (275-295); Phosphorous 2.3 mg/dL (2.4-5.1); Potassium 4.4 mMol/L (3.4-5.1); Sodium 139 mMol/L (136-145); eGFR > 60 See Note
[2024-10-24] MEDS: ENOXAPARIN SOD INJ 40 MG/0.4 ML SYRINGE SC (08:19)
[2024-10-24] MEDS: RINGERS LACTATED 1000 ML 1,000 ML 125 ML IV ×2 (11:15→19:16)
--- NOTE | 2024-10-24 14:00 | CHAP ---
Patient visited by he Spiritual Care Volunteer. (Volunteer in hospital from 13:00-c14:30)
[2024-10-24] MEDS: HYDROcodone/APAP 5/325 TABLET 1 TAB PO (15:29)
--- NOTE | 2024-10-24 15:35 | PC.NURSE ---
dressing removed per md orders, surgical incision open to air, pt tolerated well.
[2024-10-24] MEDS: DOCUSATE SOD 100 MG CAPSULE PO (19:21)
--- NOTE | 2024-10-24 19:53 | ESDS_ITS ---
Planned Discharge Date 10/24/24 DS: Providers Provider Date of admission: 10/23/24 10:38 Primary care physician: Katie Carreno MD Admitting Provider: Teresa Altamirano MD Attending Provider on Admission: Teresa Altamirano MD Attending Provider on DC: Teresa Altamirano MD Discharging Provider: Teresa Altamirano MD Anticipated date of discharge: 10/24/24 DS: Diagnosis Discharge Diagnosis (1) S/P abdominal hysterectomy: Status: Acute Assessment & Plan: patient had a Total abdominal hysterectomy and bilateral partial salpingectomy on 10/23/2024 Problem List Completed Was Problem List Reviewed/Reconciled?: Yes Hospital Course Hospital Course Hospital course: doing well VSS Had a bowel movement ambulating regular diet voiding spontaneously good pain control Status at Discharge Cognitive/behavioral status at discharge: normal Functional status at discharge: independent ambulation Overall status at discharge: patient is progressing back to baseline Time Spent with Patient Time attestation: Total time spent providing and/or coordinating discharge services: Time spent: Greater than 30 minutes Quality: VTE Deep Vein Thrombosis/Pulmonary Embolism Present on Admission: No 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 Signs Temp Pulse Resp BP Pulse Ox O2 Del Method O2 Flow Rate 97.1 F 85 18 112/64 97 Room Air 3 10/24/24 16:00 10/24/24 19:04 10/24/24 19:04 10/24/24 16:00 10/24/24 16:00 10/24/24 16:00 10/23/24 15:37 Narrative Exam patient in good spirits and would like to go home she is feeling well has family to help her home labs are stable VSS return to ADL par course Constitutional Constitutional: no acute distress Routine Respiratory Exam Respiratory: Present chest non-tender, lungs clear, normal breath sounds, no resp distress and CTA bilaterally Routine Cardiovascular Exam Cardiovascular: Present RRR Routine Abdominal Exam Abdominal: Present soft, normoactive bowel sounds and tenderness (appropriate , Incision C, D and intact ) Routine Exam Patient deferred: external exam Routine Extremities Exam Extremities: Present full ROM, pulses intact and calf tenderness (no calf tenderness ) Routine Skin Exam Skin: Present intact and normal turgor Routine Neurological Exam Neurological: Present alert, oriented X3, CN II-XII intact, normal reflexes, moving all extremities and normal tone Routine Psychiatric Exam Psychiatric: Present normal affect, normal thought process, cooperative, good insight and good judgment Discharge Plan Plan Patient Disposition: HOME (Self Care) Disposition Comment: when stable Patient condition on transfer: Stable Prescriptions/Referrals Prescriptions/Med Rec: New hydrocodone-acetaminophen 5-325 mg tablet 1 tab PO Q4HR MDD 6 pills PRN (Reason: Pain Scale 4-10(Mod-Sev) 5 Days Qty: 20 0RF Rx Instructions: 1 po q 4 to 6 hours prn pain Discontinued norethindrone ac-eth estradiol [Elaine] 1.5-30 mg-mcg tablet 1 tab PO DAILY Patient Comments: TAKE 1 TABLET BY ORAL ROUTE EVERY DAY AND START A NEW PACK EVERY 3 WEEKS No Action ferrous sulfate 325 mg (65 mg iron) tablet,delayed release (DR/EC) 325 mg PO DAILY Patient Comments: TAKE 1 TABLET BY MOUTH EVERY DAY Referrals: Katie Carreno MD [Primary Care Provider] - Patient/Caregiver Discharge Instructions Discharge Activity: activity as tolerated Other Discharge Activity Instructions:: pelvic rest x 6 weeks lift <10 lbs for 4 weeks follow up office in 2 weeks pain medication called in Other Discharge Diet Instructions: regular diet Education Materials: Caring for Yourself After Hysterectomy, After Abdominal Hysterectomy ... Print Language: Mongolian Stand Alone Forms: Ana Maria Award Info., Patient Portal Info Letter, DC from Surgery Discharge Order Discharge Orders: Discharge (Routine); Ordered 10/24/24 Ordered By: Teresa Altamirano
== END 2024-10-24 21:06 | disposition home or self-care (01) | DRG 519 ==
LOC: S2W1 10:38 → S3NX 17:00
PROVIDERS: Admitting Provider Obstetrics & Gynecology; PCP Internal Medicine; Visit Provider Obstetrics & Gynecology
PROC: 0UT90ZZ Resection of Uterus, Open Approach (ICD-10-PCS; principal; 2024-10-23 12:30)
DX: D25.1 Intramural leiomyoma of uterus (principal); D64.9 Anemia, unspecified; D25.0 Submucous leiomyoma of uterus; D25.2 Subserosal leiomyoma of uterus; N92.0 Excessive and frequent menstruation with regular cycle; Z98.891 History of uterine scar from previous surgery; E66.9 Obesity, unspecified; Z68.38 Body mass index [BMI] 38.0-38.9, adult
CPT/HCPCS: 36415; 74018; 80048; 80069; 81001; 81025; 85025; 86850; 86900; 86901; 86923; A4217; A4314; A4649; J0131; J0689; J0690; J1100; J1650; J1885; J2250; J2270; J2371; J2405; J2704; J3010; J3490; J7120; Q9968; S0077; A9270; J0737

== ENCOUNTER → 2025-01-29 | Outpatient (CLI) | payer MEDICAID, SELFPAY ==
--- NOTE | 2025-01-29 14:30 | XR_ITS ---
Examination: Screening digital mammography, bilateral Computer aided detection 3-D breast Tomosynthesis, bilateral Date and time of exam: January 29, 2025 1428 hours INDICATIONS: Screening, family history breast cancer Technique: Nonmagnified MLO, CC views of the breasts to been obtained, reconstructed from 3-D Tomosynthesis images. R2 computer aided detection program utilized for evaluation of suspicious masses and/or abnormal calcifications. 3-D Tomosynthesis images obtained. Findings: Scattered areas of fibroglandular density. Benign calcifications No suspicious masses Impression: BI-RADS category II: Benign Findings. Recommend 1 year follow-up mammogram.
== END | disposition home or self-care (01) ==
PROVIDERS: PCP Internal Medicine; Referring Provider Obstetrics & Gynecology; Visit Provider Obstetrics & Gynecology
DX: Z12.31 Encounter for screening mammogram for malignant neoplasm of breast (principal); R92.323 Mammographic fibroglandular density, bilateral breasts; Z80.3 Family history of malignant neoplasm of breast
CPT/HCPCS: 77063; 77067